=== PATIENT | male | born 1985 | race Caucasian/White ===

== ENCOUNTER 2020-11-20 18:10 | Inpatient (IN) | payer OTHER ==
[2020-11-21] MEDS ORDERED: NICOTINE POLACRILEX 2 MG GUM BC PRN (01:18)
[2020-11-21] MEDS ORDERED: MAGNESIUM HYDROX 2400MG/30ML ORAL SUSPENSION 30 ML CUP PO PRN (01:18)
[2020-11-21] MEDS ORDERED: ACETAMINOPHEN 325 MG TABLET (FP) PO PRN (01:18)
[2020-11-21] MEDS ORDERED: LOPERAMIDE HCL 2 MG CAPSULE PO PRN (01:18)
[2020-11-21] MEDS ORDERED: MAG HYDROX/AL HYDROX/SIMETH 30 ML UNIT-DOSE CUP PO PRN (01:18)
[2020-11-21] MEDS ORDERED: IBUPROFEN 400 MG TABLET (FP) PO PRN (01:18)
[2020-11-21] MEDS ORDERED: P-EPHED 60MG/TRIPROLIDI 2.5MG TABLET PO PRN (01:18)
[2020-11-21] MEDS ORDERED: MAGNESIUM CITRATE 300 ML BOTTLE PO PRN (01:18)
[2020-11-21] MEDS ORDERED: guaiFENesin 200 MG/10 ML 10 ML UNIT-DOSE CUPS PO PRN (01:18)
[2020-11-21] MEDS ORDERED: TUBERCULIN PPD 5 TU/0.1ML VIAL ID ONE (01:43)
[2020-11-21 02:44] VITALS: BMI 32.8
[2020-11-21] MEDS: PRENATAL VITAMINS W/ FOLIC ACID TABLET (FP) PO SCH (10:50)
[2020-11-21] MEDS: NICOTINE 14 MG/24 HOURS TOPICAL PATCH TD SCH (10:50)
[2020-11-21] MEDS ORDERED: ATENOLOL 50 MG TABLET (FP) PO SCH (11:00)
[2020-11-21] MEDS ORDERED: METHIMAZOLE 5 MG TABLET (FP) PO SCH (11:00)
[2020-11-21 11:29] LABS: CALCIUM 8.5 mg/dL (8.5-10.1); HEMOGLOBIN 14.6 GM/dL (11.7-16.9); MCH 30.9 pg (25.7-33.7); MCHC 33.9 g/dl (32.0-35.9); MEAN CELL VOLUME 91.2 fl (80-96); MEAN PLT VOLUME 10.1 fl (7.5-11.1); PLATELET COUNT 165 K/MM3 (134-434); RBC 4.72 M/mm3 (4.00-5.60); RDW 13.8 % (11.9-15.9); WHITE BLOOD COUNT 9.3 K/mm3 (4.0-10.0)
[2020-11-21 11:30] LABS: ALBUMIN 3.6 g/dl (3.4-5.0); BLOOD UREA NITROGEN 18.3 mg/dL (7-18)
[2020-11-21] MEDS ORDERED: METHIMAZOLE 5 MG TABLET (FP) PO ONE (11:30)
[2020-11-21 11:33] LABS: CREATININE 1.1 mg/dL (0.55-1.3)
[2020-11-21 11:34] LABS: BILIRUBIN,TOTAL 0.5 mg/dL (0.2-1); TOT PROT 7.2 g/dl (6.4-8.2)
[2020-11-21] MEDS: ATENOLOL 50 MG TABLET (FP) PO SCH (11:54)
[2020-11-21] MEDS: METHIMAZOLE 5 MG TABLET (FP) PO SCH (11:54)
[2020-11-21] MEDS ORDERED: FLU VACCINE (FLULAVAL) PF 60 MCG/0.5 ML SYRINGE 2020-2021 IM ONE (12:00)
[2020-11-21 12:24] LABS: HIV INTERPRETATION NEGATIVE (NEGATIVE)
[2020-11-21 17:58] LABS: PH,URINE 6.5 (5.0-8.0); URINE APPEARANCE CLEAR; URINE BILIRUBIN NEGATIVE (NEGATIVE); URINE COLOR YELLOW; URINE GLUCOSE (UA) NEGATIVE (NEGATIVE); URINE KETONE NEGATIVE (NEGATIVE); URINE LEUK ESTERASE NEGATIVE (NEGATIVE); URINE NITRITE NEGATIVE (NEGATIVE); URINE PROTEIN NEGATIVE (NEGATIVE); URINE UROBILINOGEN 0.2 mg/dL (0.2-1.0)
[2020-11-21] MEDS ORDERED: MELATONIN 5 MG TABLETS PO SCH (22:00)
[2020-11-21] MEDS ORDERED: THIAMINE HCL 100 MG TABLET (FP) PO SCH (22:00)
[2020-11-22] MEDS: ATENOLOL 50 MG TABLET (FP) PO SCH (05:55)
[2020-11-22] MEDS: METHIMAZOLE 5 MG TABLET (FP) PO SCH (05:56)
[2020-11-22] MEDS: NICOTINE 14 MG/24 HOURS TOPICAL PATCH TD SCH (10:49)
[2020-11-22] MEDS: PRENATAL VITAMINS W/ FOLIC ACID TABLET (FP) PO SCH (10:49)
[2020-11-22 20:30] VITALS: BP 147/90; PULSE 18; TEMP 96.9
== END 2020-11-22 20:40 | disposition short-term general hospital (02) | DRG 772 ==
LOC: YASAS 18:10 → Y5N 11-21 01:19
PROVIDERS: ADMIT Allergy & Immunology; ATTEND Allergy & Immunology
PROC: HZ42ZZZ Group Counseling for Substance Abuse Treatment, Cognitive-Behavioral (ICD-10-PCS; principal; 2020-11-21)
DX: F10.20 Alcohol dependence, uncomplicated (principal); F16.20 Hallucinogen dependence, uncomplicated; F12.20 Cannabis dependence, uncomplicated; F17.210 Nicotine dependence, cigarettes, uncomplicated; R45.851 Suicidal ideations; E05.00 Thyrotoxicosis with diffuse goiter without thyrotoxic crisis or storm; R44.0 Auditory hallucinations; Z56.0 Unemployment, unspecified; Z59.0 Homelessness
CPT/HCPCS: 36415; 80053; 81003; 85027; 86780; 87389; C9803; G0008; Q2036; U0003

== ENCOUNTER 2022-09-03 20:25 | Inpatient (IN) | payer OTHER ==
[2022-09-03 21:24] VITALS: BMI 28.9
[2022-09-04] MEDS ORDERED: LOPERAMIDE HCL 2 MG CAPSULE PO PRN
[2022-09-04] MEDS ORDERED: MAG HYDROX/AL HYDROX/SIMETH 30 ML UNIT-DOSE CUP PO PRN
[2022-09-04] MEDS ORDERED: BENZOCAINE/MENTHOL (CHLORASEPTIC ) LOZENGE MM PRN
[2022-09-04] MEDS ORDERED: DICYCLOMINE HCL 10 MG CAPSULE PO PRN
[2022-09-04] MEDS ORDERED: IBUPROFEN 600 MG TABLET (FP) PO PRN
[2022-09-04] MEDS ORDERED: MAGNESIUM HYDROX 2400MG/30ML ORAL SUSPENSION 30 ML CUP PO PRN
[2022-09-04] MEDS ORDERED: POLYETHYLENE GLYCOL (HEALTHYLAX) 3350 17 GM PACKET PO PRN
[2022-09-04] MEDS ORDERED: ONDANSETRON *ODT* 4 MG TABLET SL PRN
[2022-09-04] MEDS ORDERED: ACETAMINOPHEN 325 MG TABLET (FP) PO PRN ×2
[2022-09-04] MEDS ORDERED: BISMUTH SUBSALICYLATE 524 MG/30 ML PO PRN
[2022-09-04] MEDS ORDERED: NALOXONE HCL (KLOXXADO) 8 MG SPRAY NS PRN
[2022-09-04] MEDS: PRENATAL VITAMINS W/ FOLIC ACID TABLET (FP) PO SCH (10:11)
[2022-09-04] MEDS: METHIMAZOLE 10 MG TABLET PO SCH (15:25)
[2022-09-04] MEDS: ATENOLOL 50 MG TABLET (FP) PO SCH (15:25)
[2022-09-04] MEDS: IBUPROFEN 400 MG TABLET (FP) PO PRN (21:50)
[2022-09-04] MEDS: MELATONIN 5 MG TABLETS PO SCH (21:50)
[2022-09-04] MEDS: THIAMINE HCL 100 MG TABLET (FP) PO SCH (21:50)
[2022-09-04] MEDS: METHOCARBAMOL 500 MG TABLET PO PRN (21:50)
[2022-09-05] MEDS: ATENOLOL 50 MG TABLET (FP) PO SCH (10:11)
[2022-09-05] MEDS: METHIMAZOLE 10 MG TABLET PO SCH (10:12)
[2022-09-05] MEDS: PRENATAL VITAMINS W/ FOLIC ACID TABLET (FP) PO SCH (10:12)
[2022-09-05 12:27] LABS: HEMATOCRIT 44.4 % (35.4-49); HEMOGLOBIN 14.4 GM/dL (11.7-16.9); MCH 28.7 pg (25.7-33.7); MCHC 32.5 g/dl (32.0-35.9); MEAN CELL VOLUME 88.2 fl (80-96); MEAN PLT VOLUME 9.2 fl (7.5-11.1); PLATELET COUNT 244 10^3/uL (134-434); RBC 5.03 M/mm3 (4.00-5.60); RDW 13.3 % (11.9-15.9); WHITE BLOOD COUNT 5.8 K/mm3 (4.0-10.0)
[2022-09-05 12:29] LABS: CALCIUM 9.1 mg/dL (8.5-10.1)
[2022-09-05 12:30] LABS: ALBUMIN 3.6 g/dl (3.4-5.0); BLOOD UREA NITROGEN 18.8 mg/dL (7-18)
[2022-09-05 12:33] LABS: CREATININE 0.8 mg/dL (0.55-1.3)
[2022-09-05 12:34] LABS: TOT PROT 7.8 g/dl (6.4-8.2)
[2022-09-05 12:35] LABS: BILIRUBIN,TOTAL 0.5 mg/dL (0.2-1)
[2022-09-05] MEDS: THIAMINE HCL 100 MG TABLET (FP) PO SCH (22:45)
[2022-09-05] MEDS: MELATONIN 5 MG TABLETS PO SCH (22:45)
[2022-09-05] MEDS: METHOCARBAMOL 500 MG TABLET PO PRN (22:46)
[2022-09-05] MEDS: IBUPROFEN 400 MG TABLET (FP) PO PRN (22:46)
[2022-09-06 08:56] VITALS: RESP 18
[2022-09-06] MEDS: ATENOLOL 50 MG TABLET (FP) PO SCH (10:46)
[2022-09-06] MEDS: PRENATAL VITAMINS W/ FOLIC ACID TABLET (FP) PO SCH (10:46)
[2022-09-06] MEDS: METHIMAZOLE 10 MG TABLET PO SCH (10:46)
[2022-09-06 12:50] VITALS: BP 136/86; PULSE 64; TEMP 97.7
== END 2022-09-06 14:20 | disposition home or self-care (01) | DRG 775 ==
LOC: YASAS 20:25 → UNDOADMIN 09-04 01:26 → Y3N 09-04 01:26 → UNDODISIN 09-06 14:20
PROVIDERS: ADMIT Allergy & Immunology; ATTEND Surgery
PROC: HZ2ZZZZ Detoxification Services for Substance Abuse Treatment (ICD-10-PCS; principal; 2022-09-04)
DX: F10.230 Alcohol dependence with withdrawal, uncomplicated (principal); F16.20 Hallucinogen dependence, uncomplicated; F12.20 Cannabis dependence, uncomplicated; F13.21 Sedative, hypnotic or anxiolytic dependence, in remission; F17.210 Nicotine dependence, cigarettes, uncomplicated; I10 Essential (primary) hypertension; E05.00 Thyrotoxicosis with diffuse goiter without thyrotoxic crisis or storm; Z86.59 Personal history of other mental and behavioral disorders; Z56.0 Unemployment, unspecified; Z59.01 Sheltered homelessness
CPT/HCPCS: 36415; 80053; 85027; 86780; 87811; 93005; 93010; C9803-CS; U0003; U0005

== ENCOUNTER 2022-10-02 22:58 | Inpatient (IN) | payer OTHER ==
[2022-10-02 23:31] VITALS: BMI 24.5
[2022-10-02] MEDS ORDERED: METHOCARBAMOL 500 MG TABLET PO PRN (23:54)
[2022-10-02] MEDS ORDERED: ONDANSETRON *ODT* 4 MG TABLET SL PRN (23:54)
[2022-10-02] MEDS ORDERED: LOPERAMIDE HCL 2 MG CAPSULE PO PRN (23:54)
[2022-10-02] MEDS ORDERED: MAGNESIUM HYDROX 2400MG/30ML ORAL SUSPENSION 30 ML CUP PO PRN (23:54)
[2022-10-02] MEDS ORDERED: MAG HYDROX/AL HYDROX/SIMETH 30 ML UNIT-DOSE CUP PO PRN (23:54)
[2022-10-02] MEDS ORDERED: IBUPROFEN 600 MG TABLET (FP) PO PRN (23:54)
[2022-10-02] MEDS ORDERED: NALOXONE HCL (KLOXXADO) 8 MG SPRAY NS PRN (23:54)
[2022-10-02] MEDS ORDERED: BENZOCAINE/MENTHOL (CHLORASEPTIC ) LOZENGE MM PRN (23:54)
[2022-10-02] MEDS ORDERED: DICYCLOMINE HCL 10 MG CAPSULE PO PRN (23:54)
[2022-10-02] MEDS ORDERED: NICOTINE POLACRILEX 2 MG GUM BUC PRN (23:54)
[2022-10-02] MEDS ORDERED: BISMUTH SUBSALICYLATE 524 MG/30 ML PO PRN (23:54)
[2022-10-02] MEDS ORDERED: ACETAMINOPHEN 325 MG TABLET (FP) PO PRN ×2 (23:54)
[2022-10-02] MEDS ORDERED: IBUPROFEN 400 MG TABLET (FP) PO PRN (23:54)
[2022-10-02] MEDS ORDERED: POLYETHYLENE GLYCOL (HEALTHYLAX) 3350 17 GM PACKET PO PRN (23:54)
[2022-10-02] MEDS ORDERED: hydrOXYzine PAMOATE 25 MG CAPSULE (FP) PO PRN (23:54)
[2022-10-03] MEDS: PRENATAL VITAMINS W/ FOLIC ACID TABLET (FP) PO SCH (10:21)
[2022-10-03] MEDS: NICOTINE 14 MG/24 HOURS TOPICAL PATCH TD SCH (10:21)
[2022-10-03 11:26] LABS: HEMATOCRIT 39.9 % (35.4-49); MCH 28.5 pg (25.7-33.7); MCHC 32.6 g/dl (32.0-35.9); MEAN CELL VOLUME 87.3 fl (80-96); MEAN PLT VOLUME 9.3 fl (7.5-11.1); PLATELET COUNT 166 10^3/uL (134-434); RBC 4.57 M/mm3 (4.00-5.60); RDW 14.4 % (11.9-15.9); WHITE BLOOD COUNT 5.1 K/mm3 (4.0-10.0)
[2022-10-03 11:32] LABS: BLOOD UREA NITROGEN 18.7 mg/dL (7-18); CALCIUM 8.6 mg/dL (8.5-10.1)
[2022-10-03 11:33] LABS: ALBUMIN 3.3 g/dl (3.4-5.0)
[2022-10-03 11:35] LABS: CREATININE 0.7 mg/dL (0.55-1.3)
[2022-10-03 11:37] LABS: BILIRUBIN,TOTAL 0.7 mg/dL (0.2-1); TOT PROT 6.8 g/dl (6.4-8.2)
[2022-10-03] MEDS: THIAMINE HCL 100 MG TABLET (FP) PO SCH (22:50)
[2022-10-03] MEDS: MELATONIN 5 MG TABLETS PO SCH (22:50)
[2022-10-04] MEDS: PRENATAL VITAMINS W/ FOLIC ACID TABLET (FP) PO SCH (10:12)
[2022-10-04] MEDS: NICOTINE 14 MG/24 HOURS TOPICAL PATCH TD SCH (10:14)
[2022-10-04] MEDS: METHIMAZOLE 10 MG TABLET PO SCH (11:01)
[2022-10-04] MEDS: ATENOLOL 50 MG TABLET (FP) PO SCH (11:01)
[2022-10-04 18:01] VITALS: RESP 18
[2022-10-04] MEDS: MELATONIN 5 MG TABLETS PO SCH (22:30)
[2022-10-04] MEDS: THIAMINE HCL 100 MG TABLET (FP) PO SCH (22:30)
[2022-10-05 09:55] VITALS: BP 142/83; PULSE 96; TEMP 97.1
[2022-10-05] MEDS: PRENATAL VITAMINS W/ FOLIC ACID TABLET (FP) PO SCH (10:12)
[2022-10-05] MEDS: ATENOLOL 50 MG TABLET (FP) PO SCH (10:12)
[2022-10-05] MEDS: METHIMAZOLE 10 MG TABLET PO SCH (10:12)
[2022-10-05] MEDS: NICOTINE 14 MG/24 HOURS TOPICAL PATCH TD SCH (10:13)
== END 2022-10-05 12:45 | disposition other institution (70) | DRG 775 ==
LOC: YASAS 22:58 → Y3N 23:51
PROVIDERS: ADMIT Allergy & Immunology; ATTEND Surgery
PROC: HZ2ZZZZ Detoxification Services for Substance Abuse Treatment (ICD-10-PCS; principal; 2022-10-02)
DX: F10.230 Alcohol dependence with withdrawal, uncomplicated (principal); F16.20 Hallucinogen dependence, uncomplicated; F17.210 Nicotine dependence, cigarettes, uncomplicated; F20.9 Schizophrenia, unspecified; F31.9 Bipolar disorder, unspecified; F41.9 Anxiety disorder, unspecified; I10 Essential (primary) hypertension; Z56.0 Unemployment, unspecified; Z59.01 Sheltered homelessness
CPT/HCPCS: 36415; 80053; 85027; 86780; C9803-CS; U0003; U0005

== ENCOUNTER 2022-12-02 16:29 | Inpatient (IN) | payer OTHER ==
[2022-12-02 18:44] VITALS: BMI 25.0
[2022-12-02] MEDS ORDERED: NICOTINE 10 MG CARTRIDGE (INHALER) IH PRN (18:59)
[2022-12-02] MEDS ORDERED: MAGNESIUM HYDROX 2400MG/30ML ORAL SUSPENSION 30 ML CUP PO PRN (18:59)
[2022-12-02] MEDS ORDERED: NALOXONE HCL (KLOXXADO) 8 MG SPRAY NS PRN (18:59)
[2022-12-02] MEDS ORDERED: NALOXONE HCL 0.4 MG/ML VIAL IM PRN (18:59)
[2022-12-02] MEDS ORDERED: MAG HYDROX/AL HYDROX/SIMETH 30 ML UNIT-DOSE CUP PO PRN (18:59)
[2022-12-02] MEDS ORDERED: ACETAMINOPHEN 325 MG TABLET (FP) PO PRN (18:59)
[2022-12-02] MEDS ORDERED: BENZOCAINE/MENTHOL (CHLORASEPTIC ) LOZENGE MM PRN (18:59)
[2022-12-02] MEDS ORDERED: BENZONATATE 200 MG CAPSULE PO PRN (18:59)
[2022-12-02] MEDS ORDERED: IBUPROFEN 600 MG TABLET (FP) PO PRN (18:59)
[2022-12-02] MEDS ORDERED: IBUPROFEN 400 MG TABLET (FP) PO PRN (18:59)
[2022-12-02] MEDS ORDERED: guaiFENesin 600 MG TABLET.ER (FP) PO PRN (18:59)
[2022-12-02] MEDS ORDERED: POLYETHYLENE GLYCOL (HEALTHYLAX) 3350 17 GM PACKET PO PRN (18:59)
[2022-12-02] MEDS ORDERED: hydrOXYzine PAMOATE 25 MG CAPSULE (FP) PO PRN (18:59)
[2022-12-02] MEDS ORDERED: LOPERAMIDE HCL 2 MG CAPSULE PO PRN (18:59)
[2022-12-02] MEDS: MELATONIN 5 MG TABLETS PO SCH (23:02)
[2022-12-02] MEDS: THIAMINE HCL 100 MG TABLET (FP) PO SCH (23:02)
[2022-12-03] MEDS: risperiDONE 0.5 MG TABLET PO SCH ×2 (09:53→21:34)
[2022-12-03] MEDS: PRENATAL VITAMINS W/ FOLIC ACID TABLET (FP) PO SCH (09:53)
[2022-12-03 10:18] VITALS: RESP 18
[2022-12-03 10:48] LABS: HEMATOCRIT 40.7 % (35.4-49); HEMOGLOBIN 13.4 GM/dL (11.7-16.9); MCH 28.7 pg (25.7-33.7); MCHC 32.9 g/dl (32.0-35.9); MEAN CELL VOLUME 87.3 fl (80-96); MEAN PLT VOLUME 9.2 fl (7.5-11.1); PLATELET COUNT 211 10^3/uL (134-434); RBC 4.65 M/mm3 (4.00-5.60); RDW 14.7 % (11.9-15.9); WHITE BLOOD COUNT 3.8 K/mm3 (4.0-10.0)
[2022-12-03 11:06] LABS: CALCIUM 8.7 mg/dL (8.5-10.1)
[2022-12-03 11:07] LABS: BLOOD UREA NITROGEN 15.9 mg/dL (7-18)
[2022-12-03 11:09] LABS: CREATININE 0.7 mg/dL (0.55-1.3)
[2022-12-03 11:11] LABS: BILIRUBIN,TOTAL 0.6 mg/dL (0.2-1); TOT PROT 6.4 g/dl (6.4-8.2)
[2022-12-03] MEDS: METHIMAZOLE 10 MG TABLET PO SCH (17:05)
[2022-12-03] MEDS: MELATONIN 5 MG TABLETS PO SCH (21:33)
[2022-12-03] MEDS: THIAMINE HCL 100 MG TABLET (FP) PO SCH (21:34)
[2022-12-04] MEDS ORDERED: ATENOLOL 50 MG TABLET (FP) PO SCH (10:00)
[2022-12-04] MEDS: METHIMAZOLE 10 MG TABLET PO SCH (10:05)
[2022-12-04] MEDS: PRENATAL VITAMINS W/ FOLIC ACID TABLET (FP) PO SCH (10:06)
[2022-12-04] MEDS: risperiDONE 0.5 MG TABLET PO SCH (10:53)
[2022-12-04] MEDS ORDERED: PNEUMOC 20-VAL CONJ-DIP CRM/PF 0.5 ML SYRINGE IM ONE (12:00)
[2022-12-04 19:11] VITALS: BP 122/73; PULSE 88; TEMP 97.9
== END 2022-12-04 19:16 | disposition left against medical advice (07) | DRG 770 ==
LOC: YASAS 16:29 → Y3E 22:37
PROVIDERS: ADMIT Allergy & Immunology; ATTEND Allergy & Immunology
PROC: HZ42ZZZ Group Counseling for Substance Abuse Treatment, Cognitive-Behavioral (ICD-10-PCS; principal; 2022-12-02)
DX: F10.20 Alcohol dependence, uncomplicated (principal); F16.20 Hallucinogen dependence, uncomplicated; F17.210 Nicotine dependence, cigarettes, uncomplicated; F31.9 Bipolar disorder, unspecified; F20.9 Schizophrenia, unspecified; F39 Unspecified mood [affective] disorder; I10 Essential (primary) hypertension; E05.00 Thyrotoxicosis with diffuse goiter without thyrotoxic crisis or storm
CPT/HCPCS: 36415; 80053; 85027; 86780; 90677; C9803-CS; U0003; U0005

== ENCOUNTER 2023-04-20 21:47 | Inpatient (IN) | payer BC, OTHER ==
[2023-04-20 22:14] VITALS: BMI 27.4
[2023-04-20] MEDS ORDERED: POLYETHYLENE GLYCOL (HEALTHYLAX) 3350 17 GM PACKET PO PRN (23:15)
[2023-04-20] MEDS ORDERED: MAGNESIUM HYDROX 2400MG/30ML ORAL SUSPENSION 30 ML CUP PO PRN (23:15)
[2023-04-20] MEDS ORDERED: guaiFENesin 600 MG TABLET.ER (FP) PO PRN (23:15)
[2023-04-20] MEDS ORDERED: IBUPROFEN 600 MG TABLET (FP) PO PRN (23:15)
[2023-04-20] MEDS ORDERED: IBUPROFEN 400 MG TABLET (FP) PO PRN (23:15)
[2023-04-20] MEDS ORDERED: BENZONATATE 200 MG CAPSULE PO PRN (23:15)
[2023-04-20] MEDS ORDERED: MAG HYDROX/AL HYDROX/SIMETH 30 ML UNIT-DOSE CUP PO PRN (23:15)
[2023-04-20] MEDS ORDERED: hydrOXYzine PAMOATE 25 MG CAPSULE (FP) PO PRN (23:15)
[2023-04-20] MEDS ORDERED: AMMONIUM LACTATE 12% LOTION 225 GM BOTTLE TP PRN (23:15)
[2023-04-20] MEDS ORDERED: COLLOIDAL OATMEAL 1 BAR EACH TP PRN (23:15)
[2023-04-20] MEDS ORDERED: NICOTINE POLACRILEX 2 MG GUM BUC PRN (23:15)
[2023-04-20] MEDS ORDERED: ACETAMINOPHEN 325 MG TABLET (FP) PO PRN (23:15)
[2023-04-20] MEDS ORDERED: BENZOCAINE/MENTHOL (CHLORASEPTIC ) LOZENGE MM PRN (23:15)
[2023-04-20] MEDS ORDERED: LOPERAMIDE HCL 2 MG CAPSULE PO PRN (23:15)
[2023-04-20] MEDS ORDERED: P-EPHED 60MG/TRIPROLIDI 2.5MG TABLET PO PRN (23:15)
[2023-04-21] MEDS: MELATONIN 5 MG TABLETS PO SCH ×2 (02:28→21:28)
[2023-04-21] MEDS: ATENOLOL 50 MG TABLET (FP) PO SCH (10:03)
[2023-04-21] MEDS: risperiDONE 0.5 MG TABLET PO SCH ×2 (10:03→21:28)
[2023-04-21] MEDS: METHIMAZOLE 10 MG TABLET PO SCH (10:03)
[2023-04-21] MEDS: PRENATAL VITAMINS W/ FOLIC ACID TABLET (FP) PO SCH (10:03)
[2023-04-21 11:30] LABS: HEMOGLOBIN 14.3 GM/dL (11.7-16.9); MCH 28.2 pg (25.7-33.7); MCHC 32.5 g/dl (32.0-35.9); MEAN CELL VOLUME 86.9 fl (80-96); MEAN PLT VOLUME 9.7 fl (7.5-11.1); PLATELET COUNT 166 10^3/uL (134-434); RBC 5.07 M/mm3 (4.00-5.60); RDW 13.6 % (11.9-15.9); WHITE BLOOD COUNT 6.3 K/mm3 (4.0-10.0)
[2023-04-21 11:31] LABS: POTASSIUM 4.4 mmol/L (3.5-5.1)
[2023-04-21 11:36] LABS: BLOOD UREA NITROGEN 18.4 mg/dL (7-18); CALCIUM 8.7 mg/dL (8.5-10.1)
[2023-04-21 11:37] LABS: ALBUMIN 3.4 g/dl (3.4-5.0)
[2023-04-21 11:39] LABS: CREATININE 0.9 mg/dL (0.55-1.3)
[2023-04-21 11:41] LABS: BILIRUBIN,TOTAL 0.7 mg/dL (0.2-1); TOT PROT 6.9 g/dl (6.4-8.2)
[2023-04-21 16:55] LABS: URINE APPEARANCE CLEAR; URINE BILIRUBIN NEGATIVE (NEGATIVE); URINE COLOR YELLOW; URINE GLUCOSE (UA) NEGATIVE (NEGATIVE); URINE KETONE TRACE (NEGATIVE); URINE LEUK ESTERASE NEGATIVE (NEGATIVE); URINE NITRITE NEGATIVE (NEGATIVE); URINE PROTEIN NEGATIVE (NEGATIVE)
[2023-04-21] MEDS: THIAMINE HCL 100 MG TABLET (FP) PO SCH (21:28)
[2023-04-22] MEDS: METHIMAZOLE 10 MG TABLET PO SCH (09:29)
[2023-04-22] MEDS: ATENOLOL 50 MG TABLET (FP) PO SCH (09:29)
[2023-04-22] MEDS: risperiDONE 0.5 MG TABLET PO SCH ×2 (09:29→21:24)
[2023-04-22] MEDS: PRENATAL VITAMINS W/ FOLIC ACID TABLET (FP) PO SCH (09:29)
[2023-04-22] MEDS ORDERED: PNEUMOC 20-VAL CONJ-DIP CRM/PF 0.5 ML SYRINGE IM ONE (12:00)
[2023-04-22] MEDS: THIAMINE HCL 100 MG TABLET (FP) PO SCH (21:24)
[2023-04-22] MEDS: MELATONIN 5 MG TABLETS PO SCH (21:24)
[2023-04-23] MEDS: METHIMAZOLE 10 MG TABLET PO SCH (10:00)
[2023-04-23] MEDS: PRENATAL VITAMINS W/ FOLIC ACID TABLET (FP) PO SCH (10:00)
[2023-04-23] MEDS: risperiDONE 0.5 MG TABLET PO SCH ×2 (10:01→21:54)
[2023-04-23] MEDS: ATENOLOL 50 MG TABLET (FP) PO SCH (10:01)
[2023-04-23 11:51] VITALS: RESP 18
[2023-04-23] MEDS: MELATONIN 5 MG TABLETS PO SCH (21:54)
[2023-04-23] MEDS: THIAMINE HCL 100 MG TABLET (FP) PO SCH (21:54)
[2023-04-24] MEDS: risperiDONE 0.5 MG TABLET PO SCH ×2 (10:08→21:18)
[2023-04-24] MEDS: METHIMAZOLE 10 MG TABLET PO SCH (10:08)
[2023-04-24] MEDS: ATENOLOL 50 MG TABLET (FP) PO SCH (10:08)
[2023-04-24] MEDS: PRENATAL VITAMINS W/ FOLIC ACID TABLET (FP) PO SCH (10:08)
[2023-04-24] MEDS: MELATONIN 5 MG TABLETS PO SCH (21:18)
[2023-04-24] MEDS: THIAMINE HCL 100 MG TABLET (FP) PO SCH (21:18)
[2023-04-25 07:14] VITALS: BP 129/72; PULSE 79; TEMP 97.2
[2023-04-25] MEDS: PRENATAL VITAMINS W/ FOLIC ACID TABLET (FP) PO SCH (10:21)
[2023-04-25] MEDS: METHIMAZOLE 10 MG TABLET PO SCH (10:22)
[2023-04-25] MEDS: risperiDONE 0.5 MG TABLET PO SCH (10:22)
[2023-04-25] MEDS: ATENOLOL 50 MG TABLET (FP) PO SCH (10:22)
== END 2023-04-25 15:45 | disposition home or self-care (01) | DRG 772 ==
LOC: YASAS 21:47 → Y5N 23:19
PROVIDERS: ADMIT Allergy & Immunology; ATTEND Psychiatry & Neurology Pain Medicine
PROC: HZ42ZZZ Group Counseling for Substance Abuse Treatment, Cognitive-Behavioral (ICD-10-PCS; principal; 2023-04-20)
DX: F10.20 Alcohol dependence, uncomplicated (principal); F16.20 Hallucinogen dependence, uncomplicated; F12.20 Cannabis dependence, uncomplicated; F17.210 Nicotine dependence, cigarettes, uncomplicated; F39 Unspecified mood [affective] disorder; I10 Essential (primary) hypertension; E05.00 Thyrotoxicosis with diffuse goiter without thyrotoxic crisis or storm; R00.0 Tachycardia, unspecified; Z86.59 Personal history of other mental and behavioral disorders; Z56.0 Unemployment, unspecified; Z59.00 Homelessness unspecified
CPT/HCPCS: 36415; 80053; 81003; 85027; 86780; 87635

== ENCOUNTER 2023-06-23 17:03 | Inpatient (IN) | payer BC ==
[2023-06-23 18:09] VITALS: BMI 29.5
[2023-06-23] MEDS ORDERED: LOPERAMIDE HCL 2 MG CAPSULE PO PRN (20:42)
[2023-06-23] MEDS ORDERED: ACETAMINOPHEN 325 MG TABLET (FP) PO PRN (20:42)
[2023-06-23] MEDS ORDERED: BENZOCAINE/MENTHOL (CHLORASEPTIC ) LOZENGE MM PRN (20:42)
[2023-06-23] MEDS ORDERED: MAGNESIUM HYDROX 2400MG/30ML ORAL SUSPENSION 30 ML CUP PO PRN (20:42)
[2023-06-23] MEDS ORDERED: IBUPROFEN 400 MG TABLET (FP) PO PRN (20:42)
[2023-06-23] MEDS ORDERED: IBUPROFEN 600 MG TABLET (FP) PO PRN (20:42)
[2023-06-23] MEDS ORDERED: COLLOIDAL OATMEAL 1 BAR EACH TP PRN (20:42)
[2023-06-23] MEDS ORDERED: guaiFENesin 600 MG TABLET.ER (FP) PO PRN (20:42)
[2023-06-23] MEDS ORDERED: MAG HYDROX/AL HYDROX/SIMETH 30 ML UNIT-DOSE CUP PO PRN (20:42)
[2023-06-23] MEDS ORDERED: P-EPHED 60MG/TRIPROLIDI 2.5MG TABLET PO PRN (20:42)
[2023-06-23] MEDS ORDERED: hydrOXYzine PAMOATE 25 MG CAPSULE (FP) PO PRN (20:42)
[2023-06-23] MEDS ORDERED: BENZONATATE 200 MG CAPSULE PO PRN (20:42)
[2023-06-23] MEDS ORDERED: POLYETHYLENE GLYCOL (HEALTHYLAX) 3350 17 GM PACKET PO PRN (20:42)
[2023-06-23] MEDS: MELATONIN 5 MG TABLETS PO SCH (21:34)
[2023-06-23] MEDS: THIAMINE HCL 100 MG TABLET (FP) PO SCH (21:35)
[2023-06-24] MEDS: PRENATAL VITAMINS W/ FOLIC ACID TABLET (FP) PO SCH (10:04)
[2023-06-24] MEDS: risperiDONE 0.5 MG TABLET PO SCH ×2 (10:26→21:31)
[2023-06-24 11:02] LABS: POTASSIUM 4.5 mmol/L (3.5-5.1)
[2023-06-24 11:10] LABS: ALBUMIN 3.6 g/dl (3.4-5.0); BLOOD UREA NITROGEN 17.8 mg/dL (7-18)
[2023-06-24 11:13] LABS: CREATININE 0.8 mg/dL (0.55-1.3)
[2023-06-24 11:15] LABS: TOT PROT 7.6 g/dl (6.4-8.2)
[2023-06-24 11:17] LABS: BILIRUBIN,TOTAL 0.8 mg/dL (0.2-1)
[2023-06-24 11:39] LABS: HEMATOCRIT 43.9 % (35.4-49); HEMOGLOBIN 15.1 GM/dL (11.7-16.9); MCH 28.9 pg (25.7-33.7); MCHC 34.3 g/dl (32.0-35.9); MEAN CELL VOLUME 84.2 fl (80-96); MEAN PLT VOLUME 9.1 fl (7.5-11.1); PLATELET COUNT 214 10^3/uL (134-434); RBC 5.22 M/mm3 (4.00-5.60); RDW 13.9 % (11.9-15.9); WHITE BLOOD COUNT 6.8 K/mm3 (4.0-10.0)
[2023-06-24 11:47] LABS: PH,URINE 5.5 (5.0-8.0); URINE APPEARANCE CLEAR; URINE BILIRUBIN NEGATIVE (NEGATIVE); URINE COLOR DK YELLOW; URINE GLUCOSE (UA) NEGATIVE (NEGATIVE); URINE KETONE TRACE (NEGATIVE); URINE LEUK ESTERASE NEGATIVE (NEGATIVE); URINE NITRITE NEGATIVE (NEGATIVE); URINE PROTEIN NEGATIVE (NEGATIVE); URINE UROBILINOGEN 0.2 mg/dL (0.2-1.0)
[2023-06-24] MEDS: THIAMINE HCL 100 MG TABLET (FP) PO SCH (21:31)
[2023-06-24] MEDS: MELATONIN 5 MG TABLETS PO SCH (21:31)
[2023-06-24] MEDS: ATENOLOL 50 MG TABLET (FP) PO SCH (22:17)
[2023-06-24] MEDS: METHIMAZOLE 10 MG TABLET PO SCH (22:17)
[2023-06-25] MEDS: METHIMAZOLE 10 MG TABLET PO SCH (10:42)
[2023-06-25] MEDS: PRENATAL VITAMINS W/ FOLIC ACID TABLET (FP) PO SCH (10:42)
[2023-06-25] MEDS: risperiDONE 0.5 MG TABLET PO SCH ×2 (10:42→21:41)
[2023-06-25] MEDS: ATENOLOL 50 MG TABLET (FP) PO SCH (10:42)
[2023-06-25] MEDS: MELATONIN 5 MG TABLETS PO SCH (21:41)
[2023-06-25] MEDS: THIAMINE HCL 100 MG TABLET (FP) PO SCH (21:41)
[2023-06-26] MEDS: risperiDONE 0.5 MG TABLET PO SCH ×2 (10:06→21:38)
[2023-06-26] MEDS: PRENATAL VITAMINS W/ FOLIC ACID TABLET (FP) PO SCH (10:06)
[2023-06-26] MEDS: ATENOLOL 50 MG TABLET (FP) PO SCH (12:05)
[2023-06-26] MEDS: METHIMAZOLE 10 MG TABLET PO SCH (12:05)
[2023-06-26] MEDS: THIAMINE HCL 100 MG TABLET (FP) PO SCH (21:38)
[2023-06-26] MEDS: MELATONIN 5 MG TABLETS PO SCH (21:39)
[2023-06-27] MEDS: PRENATAL VITAMINS W/ FOLIC ACID TABLET (FP) PO SCH (10:09)
[2023-06-27] MEDS: ATENOLOL 50 MG TABLET (FP) PO SCH (10:09)
[2023-06-27] MEDS: METHIMAZOLE 10 MG TABLET PO SCH (10:09)
[2023-06-27] MEDS: risperiDONE 0.5 MG TABLET PO SCH ×2 (10:10→21:43)
[2023-06-27] MEDS ORDERED: PNEUMOC 20-VAL CONJ-DIP CRM/PF 0.5 ML SYRINGE IM ONE (12:00)
[2023-06-27] MEDS ORDERED: FLU VACCINE (FLULAVAL) PF 60 MCG/0.5 ML SYRINGE 2023-2024 IM ONE (12:00)
[2023-06-27] MEDS: THIAMINE HCL 100 MG TABLET (FP) PO SCH (21:43)
[2023-06-27] MEDS: MELATONIN 5 MG TABLETS PO SCH (21:43)
[2023-06-28] MEDS: PRENATAL VITAMINS W/ FOLIC ACID TABLET (FP) PO SCH (10:02)
[2023-06-28] MEDS: ATENOLOL 50 MG TABLET (FP) PO SCH (10:03)
[2023-06-28] MEDS: risperiDONE 0.5 MG TABLET PO SCH ×2 (10:03→21:26)
[2023-06-28] MEDS: METHIMAZOLE 10 MG TABLET PO SCH (10:03)
[2023-06-28] MEDS: THIAMINE HCL 100 MG TABLET (FP) PO SCH (21:26)
[2023-06-28] MEDS: MELATONIN 5 MG TABLETS PO SCH (21:29)
[2023-06-29] MEDS: PRENATAL VITAMINS W/ FOLIC ACID TABLET (FP) PO SCH (10:12)
[2023-06-29] MEDS: risperiDONE 0.5 MG TABLET PO SCH ×2 (10:13→21:25)
[2023-06-29] MEDS: ATENOLOL 50 MG TABLET (FP) PO SCH (10:13)
[2023-06-29] MEDS: METHIMAZOLE 10 MG TABLET PO SCH (10:13)
[2023-06-29] MEDS: THIAMINE HCL 100 MG TABLET (FP) PO SCH (21:25)
[2023-06-29] MEDS: MELATONIN 5 MG TABLETS PO SCH (21:25)
[2023-06-30] MEDS: PRENATAL VITAMINS W/ FOLIC ACID TABLET (FP) PO SCH (10:21)
[2023-06-30] MEDS: risperiDONE 0.5 MG TABLET PO SCH ×2 (10:21→21:27)
[2023-06-30] MEDS: ATENOLOL 50 MG TABLET (FP) PO SCH (10:22)
[2023-06-30] MEDS: METHIMAZOLE 10 MG TABLET PO SCH (10:22)
[2023-06-30] MEDS: MELATONIN 5 MG TABLETS PO SCH (21:27)
[2023-06-30] MEDS: THIAMINE HCL 100 MG TABLET (FP) PO SCH (21:27)
[2023-07-01] MEDS: PRENATAL VITAMINS W/ FOLIC ACID TABLET (FP) PO SCH (10:12)
[2023-07-01] MEDS: METHIMAZOLE 10 MG TABLET PO SCH (10:13)
[2023-07-01] MEDS: ATENOLOL 50 MG TABLET (FP) PO SCH (10:13)
[2023-07-01] MEDS: risperiDONE 0.5 MG TABLET PO SCH ×2 (10:13→21:32)
[2023-07-01] MEDS: MELATONIN 5 MG TABLETS PO SCH (21:32)
[2023-07-01] MEDS: THIAMINE HCL 100 MG TABLET (FP) PO SCH (21:33)
[2023-07-02] MEDS: PRENATAL VITAMINS W/ FOLIC ACID TABLET (FP) PO SCH (10:18)
[2023-07-02] MEDS: risperiDONE 0.5 MG TABLET PO SCH ×2 (10:19→21:54)
[2023-07-02] MEDS: ATENOLOL 50 MG TABLET (FP) PO SCH (10:19)
[2023-07-02] MEDS: METHIMAZOLE 10 MG TABLET PO SCH (10:19)
[2023-07-02] MEDS: THIAMINE HCL 100 MG TABLET (FP) PO SCH (21:54)
[2023-07-02] MEDS: MELATONIN 5 MG TABLETS PO SCH (21:54)
[2023-07-03] MEDS: PRENATAL VITAMINS W/ FOLIC ACID TABLET (FP) PO SCH (10:06)
[2023-07-03] MEDS: ATENOLOL 50 MG TABLET (FP) PO SCH (10:07)
[2023-07-03] MEDS: risperiDONE 0.5 MG TABLET PO SCH ×2 (10:07→21:48)
[2023-07-03] MEDS: METHIMAZOLE 10 MG TABLET PO SCH (10:07)
[2023-07-03] MEDS: MELATONIN 5 MG TABLETS PO SCH (21:48)
[2023-07-03] MEDS: THIAMINE HCL 100 MG TABLET (FP) PO SCH (21:49)
[2023-07-04] MEDS: risperiDONE 0.5 MG TABLET PO SCH ×2 (10:17→21:44)
[2023-07-04] MEDS: ATENOLOL 50 MG TABLET (FP) PO SCH (10:17)
[2023-07-04] MEDS: METHIMAZOLE 10 MG TABLET PO SCH (10:17)
[2023-07-04] MEDS: PRENATAL VITAMINS W/ FOLIC ACID TABLET (FP) PO SCH (10:17)
[2023-07-04] MEDS: MELATONIN 5 MG TABLETS PO SCH (21:43)
[2023-07-04] MEDS: THIAMINE HCL 100 MG TABLET (FP) PO SCH (21:43)
[2023-07-05 06:31] VITALS: BP 121/72; RESP 18; TEMP 97.8
[2023-07-05] MEDS: PRENATAL VITAMINS W/ FOLIC ACID TABLET (FP) PO SCH (10:19)
[2023-07-05] MEDS: risperiDONE 0.5 MG TABLET PO SCH (10:20)
[2023-07-05] MEDS: ATENOLOL 50 MG TABLET (FP) PO SCH (10:20)
[2023-07-05] MEDS: METHIMAZOLE 10 MG TABLET PO SCH (10:21)
[2023-07-05 11:36] VITALS: PULSE 106
== END 2023-07-05 13:55 | disposition home or self-care (01) | DRG 770 ==
LOC: YASAS 17:03 → Y5N 20:28
PROVIDERS: ADMIT Allergy & Immunology; ATTEND Psychiatry & Neurology Pain Medicine
PROC: HZ42ZZZ Group Counseling for Substance Abuse Treatment, Cognitive-Behavioral (ICD-10-PCS; principal; 2023-06-23)
DX: F10.20 Alcohol dependence, uncomplicated (principal); F16.20 Hallucinogen dependence, uncomplicated; F17.210 Nicotine dependence, cigarettes, uncomplicated; E05.90 Thyrotoxicosis, unspecified without thyrotoxic crisis or storm; I10 Essential (primary) hypertension; Z86.59 Personal history of other mental and behavioral disorders
CPT/HCPCS: 36415; 80053; 81003; 85027; 86780; 87635; 87811; 90686; G0008

== ENCOUNTER 2023-09-14 13:21 | Inpatient (IN) | payer BC ==
[2023-09-14 14:20] VITALS: BMI 28.0
[2023-09-14] MEDS ORDERED: LOPERAMIDE HCL 2 MG CAPSULE PO PRN (21:10)
[2023-09-14] MEDS ORDERED: IBUPROFEN 600 MG TABLET (FP) PO PRN (21:10)
[2023-09-14] MEDS ORDERED: IBUPROFEN 400 MG TABLET (FP) PO PRN (21:10)
[2023-09-14] MEDS ORDERED: P-EPHED 60MG/TRIPROLIDI 2.5MG TABLET PO PRN (21:10)
[2023-09-14] MEDS ORDERED: POLYETHYLENE GLYCOL (HEALTHYLAX) 3350 17 GM PACKET PO PRN (21:10)
[2023-09-14] MEDS ORDERED: BENZOCAINE/MENTHOL (CHLORASEPTIC ) LOZENGE MM PRN (21:10)
[2023-09-14] MEDS ORDERED: hydrOXYzine PAMOATE 25 MG CAPSULE (FP) PO PRN (21:10)
[2023-09-14] MEDS ORDERED: MAGNESIUM HYDROX 2400MG/30ML ORAL SUSPENSION 30 ML CUP PO PRN (21:10)
[2023-09-14] MEDS ORDERED: BENZONATATE 200 MG CAPSULE PO PRN (21:10)
[2023-09-14] MEDS ORDERED: MAG HYDROX/AL HYDROX/SIMETH 30 ML UNIT-DOSE CUP PO PRN (21:10)
[2023-09-14] MEDS ORDERED: guaiFENesin 600 MG TABLET.ER (FP) PO PRN (21:10)
[2023-09-14] MEDS ORDERED: ACETAMINOPHEN 325 MG TABLET (FP) PO PRN (21:10)
[2023-09-14] MEDS ORDERED: COLLOIDAL OATMEAL 1 BAR EACH TP PRN (21:10)
[2023-09-14] MEDS ORDERED: TUBERCULIN PPD 5 TU/0.1ML VIAL ID ONE (22:24)
[2023-09-14] MEDS: THIAMINE HCL 100 MG TABLET (FP) PO SCH (22:32)
[2023-09-14] MEDS: MELATONIN 5 MG TABLETS PO SCH (22:32)
[2023-09-15] MEDS: PRENATAL VITAMINS W/ FOLIC ACID TABLET (FP) PO SCH (09:57)
[2023-09-15] MEDS: risperiDONE 0.5 MG TABLET PO SCH ×2 (10:32→21:53)
[2023-09-15] MEDS ORDERED: METHIMAZOLE 10 MG TABLET PO SCH (12:30)
[2023-09-15] MEDS: ATENOLOL 50 MG TABLET (FP) PO SCH (13:15)
[2023-09-15 15:01] LABS: HEMATOCRIT 39.7 % (35.4-49); HEMOGLOBIN 13.1 GM/dL (11.7-16.9); MCH 27.7 pg (25.7-33.7); MEAN CELL VOLUME 84.2 fl (80-96); MEAN PLT VOLUME 9.3 fl (7.5-11.1); PLATELET COUNT 141 10^3/uL (134-434); RBC 4.72 M/mm3 (4.00-5.60); RDW 13.6 % (11.9-15.9); WHITE BLOOD COUNT 3.4 K/mm3 (4.0-10.0)
[2023-09-15 15:24] LABS: POTASSIUM 4.3 mmol/L (3.5-5.1)
[2023-09-15 15:33] LABS: ALBUMIN 3.1 g/dl (3.4-5.0); CALCIUM 8.8 mg/dL (8.5-10.1)
[2023-09-15 15:34] LABS: BLOOD UREA NITROGEN 12.6 mg/dL (7-18)
[2023-09-15 15:37] LABS: CREATININE 0.6 mg/dL (0.55-1.3)
[2023-09-15 15:39] LABS: BILIRUBIN,TOTAL 0.5 mg/dL (0.2-1); TOT PROT 6.6 g/dl (6.4-8.2)
[2023-09-15 18:43] LABS: PH,URINE 7.5 (5.0-8.0); URINE APPEARANCE CLEAR; URINE BILIRUBIN NEGATIVE (NEGATIVE); URINE COLOR YELLOW; URINE GLUCOSE (UA) NEGATIVE (NEGATIVE); URINE KETONE NEGATIVE (NEGATIVE); URINE LEUK ESTERASE NEGATIVE (NEGATIVE); URINE NITRITE NEGATIVE (NEGATIVE); URINE PROTEIN NEGATIVE (NEGATIVE); URINE UROBILINOGEN 0.2 mg/dL (0.2-1.0)
[2023-09-15] MEDS: THIAMINE HCL 100 MG TABLET (FP) PO SCH (21:52)
[2023-09-15] MEDS: MELATONIN 5 MG TABLETS PO SCH (21:52)
[2023-09-16] MEDS: METHIMAZOLE 10 MG TABLET PO SCH (09:56)
[2023-09-16] MEDS: risperiDONE 0.5 MG TABLET PO SCH ×2 (09:57→21:16)
[2023-09-16] MEDS: ATENOLOL 50 MG TABLET (FP) PO SCH (09:57)
[2023-09-16] MEDS: PRENATAL VITAMINS W/ FOLIC ACID TABLET (FP) PO SCH (09:57)
[2023-09-16] MEDS: MELATONIN 5 MG TABLETS PO SCH (21:16)
[2023-09-16] MEDS: THIAMINE HCL 100 MG TABLET (FP) PO SCH (21:17)
[2023-09-17 06:27] VITALS: RESP 20; TEMP 97.1
[2023-09-17 09:36] VITALS: BP 118/78; PULSE 86
[2023-09-17] MEDS: METHIMAZOLE 10 MG TABLET PO SCH (09:36)
[2023-09-17] MEDS: ATENOLOL 50 MG TABLET (FP) PO SCH (09:36)
[2023-09-17] MEDS: risperiDONE 0.5 MG TABLET PO SCH (09:36)
[2023-09-17] MEDS: PRENATAL VITAMINS W/ FOLIC ACID TABLET (FP) PO SCH (09:36)
== END 2023-09-17 14:05 | disposition home or self-care (01) | DRG 772 ==
LOC: YASAS 13:21 → Y3E 21:15
PROVIDERS: ADMIT Allergy & Immunology; ATTEND Psychiatry & Neurology Pain Medicine
PROC: HZ42ZZZ Group Counseling for Substance Abuse Treatment, Cognitive-Behavioral (ICD-10-PCS; principal; 2023-09-14)
DX: F10.20 Alcohol dependence, uncomplicated (principal); F16.20 Hallucinogen dependence, uncomplicated; F12.20 Cannabis dependence, uncomplicated; F17.210 Nicotine dependence, cigarettes, uncomplicated; F25.9 Schizoaffective disorder, unspecified; I10 Essential (primary) hypertension; E05.00 Thyrotoxicosis with diffuse goiter without thyrotoxic crisis or storm; Z59.00 Homelessness unspecified; Z56.0 Unemployment, unspecified
CPT/HCPCS: 36415; 80053; 81003; 85027; 86780; 87635

== ENCOUNTER 2023-12-21 18:32 | Inpatient (IN) | payer BC ==
[2023-12-21 19:20] VITALS: BMI 27.7
[2023-12-21] MEDS ORDERED: BENZOCAINE/MENTHOL (CHLORASEPTIC ) LOZENGE MM PRN (19:37)
[2023-12-21] MEDS ORDERED: guaiFENesin 600 MG TABLET.ER (FP) PO PRN (19:37)
[2023-12-21] MEDS ORDERED: MAGNESIUM HYDROX 2400MG/30ML ORAL SUSPENSION 30 ML CUP PO PRN (19:37)
[2023-12-21] MEDS ORDERED: LOPERAMIDE HCL 2 MG CAPSULE PO PRN (19:37)
[2023-12-21] MEDS ORDERED: IBUPROFEN 400 MG TABLET (FP) PO PRN (19:37)
[2023-12-21] MEDS ORDERED: POLYETHYLENE GLYCOL (HEALTHYLAX) 3350 17 GM PACKET PO PRN (19:37)
[2023-12-21] MEDS ORDERED: BENZONATATE 200 MG CAPSULE PO PRN (19:37)
[2023-12-21] MEDS ORDERED: ACETAMINOPHEN 325 MG TABLET (FP) PO PRN (19:37)
[2023-12-21] MEDS ORDERED: hydrOXYzine PAMOATE 25 MG CAPSULE (FP) PO PRN (19:37)
[2023-12-21] MEDS ORDERED: MAG HYDROX/AL HYDROX/SIMETH 30 ML UNIT-DOSE CUP PO PRN (19:37)
[2023-12-21 21:13] VITALS: RESP 18
[2023-12-21] MEDS: THIAMINE HCL 100 MG TABLET (FP) PO SCH (21:41)
[2023-12-21] MEDS: risperiDONE 1 MG TABLET PO ONE (21:41)
[2023-12-21] MEDS: MELATONIN 5 MG TABLETS PO SCH (21:41)
[2023-12-22 06:43] VITALS: TEMP 97.4
[2023-12-22] MEDS: IBUPROFEN 600 MG TABLET (FP) PO PRN (10:02)
[2023-12-22] MEDS: PRENATAL VITAMINS W/ FOLIC ACID TABLET (FP) PO SCH (10:03)
[2023-12-22] MEDS: ATENOLOL 50 MG TABLET (FP) PO SCH (11:02)
[2023-12-22] MEDS: METHIMAZOLE 10 MG TABLET PO SCH (11:02)
[2023-12-22 11:28] VITALS: BP 120/64; PULSE 93
[2023-12-22 11:46] LABS: PH,URINE 5.5 (5.0-8.0); URINE APPEARANCE CLEAR; URINE BILIRUBIN NEGATIVE (NEGATIVE); URINE COLOR YELLOW; URINE GLUCOSE (UA) NEGATIVE (NEGATIVE); URINE KETONE NEGATIVE (NEGATIVE); URINE LEUK ESTERASE NEGATIVE (NEGATIVE); URINE NITRITE NEGATIVE (NEGATIVE); URINE PROTEIN NEGATIVE (NEGATIVE); URINE UROBILINOGEN 0.2 mg/dL (0.2-1.0)
[2023-12-22 11:46] LABS: HEMATOCRIT 46.1 % (35.4-49); HEMOGLOBIN 14.9 GM/dL (11.7-16.9); MCH 28.4 pg (25.7-33.7); MCHC 32.2 g/dl (32.0-35.9); MEAN CELL VOLUME 88.1 fl (80-96); MEAN PLT VOLUME 9.2 fl (7.5-11.1); PLATELET COUNT 209 10^3/uL (134-434); POTASSIUM 4.2 mmol/L (3.5-5.1); RBC 5.24 M/mm3 (4.00-5.60)
[2023-12-22 11:52] LABS: ALBUMIN 3.4 g/dl (3.4-5.0); CALCIUM 8.7 mg/dL (8.5-10.1)
[2023-12-22 11:55] LABS: CREATININE 0.8 mg/dL (0.55-1.3)
[2023-12-22 11:56] LABS: BILIRUBIN,TOTAL 0.5 mg/dL (0.2-1); TOT PROT 7.1 g/dl (6.4-8.2)
[2023-12-22] MEDS: risperiDONE 0.5 MG TABLET PO SCH (14:18)
[2023-12-22] MEDS ORDERED: DIVALPROEX SODIUM 500 MG TABLET E.C. PO SCH (22:00)
[2023-12-22] MEDS: risperiDONE 1 MG TABLET PO SCH (22:03)
[2023-12-22] MEDS: DIVALPROEX SODIUM 500 MG TABLET E.C. PO SCH (22:03)
== END 2023-12-22 21:57 | disposition left against medical advice (07) | DRG 770 ==
LOC: YASAS 18:32 → Y5N 20:20
PROVIDERS: ADMIT Allergy & Immunology; ATTEND Psychiatry & Neurology Pain Medicine
PROC: HZ42ZZZ Group Counseling for Substance Abuse Treatment, Cognitive-Behavioral (ICD-10-PCS; principal; 2023-12-21)
DX: F10.20 Alcohol dependence, uncomplicated (principal); F14.20 Cocaine dependence, uncomplicated; F16.20 Hallucinogen dependence, uncomplicated; F17.210 Nicotine dependence, cigarettes, uncomplicated; F31.9 Bipolar disorder, unspecified; E05.00 Thyrotoxicosis with diffuse goiter without thyrotoxic crisis or storm; E05.90 Thyrotoxicosis, unspecified without thyrotoxic crisis or storm; I10 Essential (primary) hypertension
CPT/HCPCS: 36415; 80053; 80305; 81003; 85027; 86780

== ENCOUNTER 2024-03-20 01:38 | Inpatient (IN) | payer BC ==
[2024-03-20 02:00] VITALS: BMI 27.7
[2024-03-20] MEDS ORDERED: POLYETHYLENE GLYCOL (HEALTHYLAX) 3350 17 GM PACKET PO PRN (02:33)
[2024-03-20] MEDS ORDERED: ONDANSETRON *ODT* 4 MG TABLET SL PRN (02:33)
[2024-03-20] MEDS ORDERED: MAGNESIUM HYDROX 2400MG/30ML ORAL SUSPENSION 30 ML CUP PO PRN (02:33)
[2024-03-20] MEDS ORDERED: ACETAMINOPHEN 325 MG TABLET (FP) PO PRN (02:33)
[2024-03-20] MEDS ORDERED: BENZOCAINE/MENTHOL (CHLORASEPTIC ) LOZENGE MM PRN (02:33)
[2024-03-20] MEDS ORDERED: BISMUTH SUBSALICYLATE 524 MG/30 ML PO PRN (02:33)
[2024-03-20] MEDS ORDERED: NALOXONE HCL 0.4 MG/ML VIAL IM PRN (02:33)
[2024-03-20] MEDS ORDERED: IBUPROFEN 400 MG TABLET (FP) PO PRN (02:33)
[2024-03-20] MEDS ORDERED: guaiFENesin 600 MG TABLET.ER (FP) PO PRN (02:33)
[2024-03-20] MEDS ORDERED: LOPERAMIDE HCL 2 MG CAPSULE PO PRN (02:33)
[2024-03-20] MEDS ORDERED: DICYCLOMINE HCL 10 MG CAPSULE PO PRN (02:33)
[2024-03-20] MEDS ORDERED: NICOTINE POLACRILEX 2 MG LOZENGE BC PRN (02:33)
[2024-03-20] MEDS ORDERED: BENZONATATE 200 MG CAPSULE PO PRN (02:33)
[2024-03-20] MEDS ORDERED: MAG HYDROX/AL HYDROX/SIMETH 30 ML UNIT-DOSE CUP PO PRN (02:33)
[2024-03-20] MEDS ORDERED: NALOXONE (NARCAN) HCL 4 MG/0.1 ML SPRAY NS PRN (02:33)
[2024-03-20] MEDS ORDERED: chlordiazePOXIDE HCL 25 MG CAPSULE PO PRN (09:58)
[2024-03-20] MEDS: chlordiazePOXIDE HCL 25 MG CAPSULE PO SCH (10:12)
[2024-03-20] MEDS: PRENATAL VITAMINS W/ FOLIC ACID TABLET (FP) PO SCH (10:12)
[2024-03-20] MEDS: NICOTINE 14 MG/24 HOURS TOPICAL PATCH TD SCH (10:13)
[2024-03-20] MEDS: ATENOLOL 50 MG TABLET (FP) PO SCH (10:44)
[2024-03-20] MEDS: METHIMAZOLE 10 MG TABLET PO SCH (10:45)
[2024-03-20] MEDS ORDERED: METHIMAZOLE 10 MG TABLET PO SCH (15:30)
[2024-03-20] MEDS: risperiDONE 1 MG TABLET PO SCH (22:10)
[2024-03-20] MEDS: THIAMINE 100 MG TABLET PO SCH (22:10)
[2024-03-20] MEDS: MELATONIN 5 MG TABLETS PO SCH (22:10)
[2024-03-21] MEDS: METHIMAZOLE 10 MG TABLET PO SCH (10:27)
[2024-03-21 11:52] LABS: HEMATOCRIT 45.5 % (35.4-49); HEMOGLOBIN 15.3 GM/dL (11.7-16.9); MCH 29.7 pg (25.7-33.7); MCHC 33.5 g/dl (32.0-35.9); MEAN CELL VOLUME 88.7 fl (80-96); MEAN PLT VOLUME 9.3 fl (7.5-11.1); PLATELET COUNT 169 10^3/uL (134-434); RBC 5.13 M/mm3 (4.00-5.60); RDW 15.5 % (11.9-15.9); WHITE BLOOD COUNT 6.8 K/mm3 (4.0-10.0)
[2024-03-21 11:54] LABS: POTASSIUM 4.4 mmol/L (3.5-5.1)
[2024-03-21 12:02] LABS: ALBUMIN 3.7 g/dl (3.4-5.0); BLOOD UREA NITROGEN 15.5 mg/dL (7-18); CALCIUM 8.8 mg/dL (8.5-10.1)
[2024-03-21 12:05] LABS: CREATININE 0.8 mg/dL (0.55-1.3)
[2024-03-21 12:07] LABS: BILIRUBIN,TOTAL 0.6 mg/dL (0.2-1); TOT PROT 7.8 g/dl (6.4-8.2)
[2024-03-22] MEDS: chlordiazePOXIDE HCL 25 MG CAPSULE PO SCH (05:42)
[2024-03-22] MEDS: METHIMAZOLE 10 MG TABLET PO SCH (10:09)
[2024-03-22] MEDS: hydrOXYzine PAMOATE 25 MG CAPSULE (FP) PO PRN (22:18)
[2024-03-22] MEDS: IBUPROFEN 600 MG TABLET (FP) PO PRN (23:24)
[2024-03-23] MEDS ORDERED: chlordiazePOXIDE HCL 10 MG CAPSULE PO PRN
[2024-03-23] MEDS: chlordiazePOXIDE HCL 10 MG CAPSULE PO SCH (05:23)
[2024-03-23 12:37] VITALS: PULSE 84
[2024-03-23 16:34] VITALS: BP 139/83; RESP 18; TEMP 98.2
[2024-03-24] MEDS ORDERED: chlordiazePOXIDE HCL 10 MG CAPSULE PO SCH (05:00)
[2024-03-25] MEDS ORDERED: chlordiazePOXIDE HCL 10 MG CAPSULE PO ONE (05:00)
== END 2024-03-23 19:00 | disposition home or self-care (01) | DRG 773 ==
LOC: YASAS 01:38 → Y3N 02:54
PROVIDERS: ADMIT Allergy & Immunology; ATTEND Allergy & Immunology
PROC: HZ2ZZZZ Detoxification Services for Substance Abuse Treatment (ICD-10-PCS; principal; 2024-03-20)
DX: F10.230 Alcohol dependence with withdrawal, uncomplicated (principal); F11.20 Opioid dependence, uncomplicated; F14.20 Cocaine dependence, uncomplicated; F13.20 Sedative, hypnotic or anxiolytic dependence, uncomplicated; F16.20 Hallucinogen dependence, uncomplicated; F17.210 Nicotine dependence, cigarettes, uncomplicated; F25.9 Schizoaffective disorder, unspecified; E05.00 Thyrotoxicosis with diffuse goiter without thyrotoxic crisis or storm; I10 Essential (primary) hypertension; Z59.01 Sheltered homelessness
CPT/HCPCS: 36415; 80053; 80305; 80307; 85027; 86780; 93005; 93010

== ENCOUNTER 2024-05-01 14:04 | Inpatient (IN) | payer BC ==
[2024-05-01 15:44] VITALS: BMI 28.7
[2024-05-01] MEDS ORDERED: MAG HYDROX/AL HYDROX/SIMETH 30 ML UNIT-DOSE CUP PO PRN (16:01)
[2024-05-01] MEDS ORDERED: POLYETHYLENE GLYCOL (HEALTHYLAX) 3350 17 GM PACKET PO PRN (16:01)
[2024-05-01] MEDS ORDERED: MAGNESIUM HYDROX 2400MG/30ML ORAL SUSPENSION 30 ML CUP PO PRN (16:01)
[2024-05-01] MEDS ORDERED: IBUPROFEN 400 MG TABLET (FP) PO PRN (16:01)
[2024-05-01] MEDS ORDERED: ACETAMINOPHEN 325 MG TABLET (FP) PO PRN (16:01)
[2024-05-01] MEDS ORDERED: BENZOCAINE/MENTHOL (CHLORASEPTIC ) LOZENGE MM PRN (16:01)
[2024-05-01] MEDS ORDERED: guaiFENesin 600 MG TABLET.ER (FP) PO PRN (16:01)
[2024-05-01] MEDS ORDERED: BENZONATATE 200 MG CAPSULE PO PRN (16:01)
[2024-05-01] MEDS ORDERED: LOPERAMIDE HCL 2 MG CAPSULE PO PRN (16:01)
[2024-05-01] MEDS: hydrOXYzine PAMOATE 25 MG CAPSULE (FP) PO PRN (22:25)
[2024-05-01] MEDS: THIAMINE 100 MG TABLET PO SCH (22:25)
[2024-05-01] MEDS: MELATONIN 5 MG TABLETS PO SCH (22:25)
[2024-05-02 08:49] LABS: HEMATOCRIT 42.5 % (35.4-49); HEMOGLOBIN 14.4 GM/dL (11.7-16.9); MCH 30.4 pg (25.7-33.7); MEAN CELL VOLUME 89.5 fl (80-96); MEAN PLT VOLUME 9.4 fl (7.5-11.1); PLATELET COUNT 184 10^3/uL (134-434); RBC 4.75 M/mm3 (4.00-5.60); RDW 14.4 % (11.9-15.9); WHITE BLOOD COUNT 6.2 K/mm3 (4.0-10.0)
[2024-05-02 08:51] LABS: CHLORIDE 108 mmol/L (98-107); POTASSIUM 4.3 mmol/L (3.5-5.1); SODIUM 140 mmol/L (136-145)
[2024-05-02 08:57] LABS: ALBUMIN 3.5 g/dl (3.4-5.0); CALCIUM 8.9 mg/dL (8.5-10.1); GLUCOSE,RANDOM 87 mg/dL (74-106)
[2024-05-02 08:58] LABS: ANION GAP 5 mmol/L (4-13); CO2 27 mmol/L (21-32)
[2024-05-02 09:00] LABS: CREATININE 0.9 mg/dL (0.55-1.3); SGOT/AST 24 U/L (15-37); SGPT/ALT 34 U/L (13-61)
[2024-05-02 09:01] LABS: BILIRUBIN,TOTAL 0.7 mg/dL (0.2-1)
[2024-05-02 09:02] LABS: TOT PROT 7.1 g/dl (6.4-8.2)
[2024-05-02 09:03] LABS: ALK PHOS 90 U/L (45-117)
[2024-05-02] MEDS: PRENATAL VITAMINS W/ FOLIC ACID TABLET (FP) PO SCH (10:32)
[2024-05-02] MEDS: risperiDONE 0.5 MG TABLET PO SCH (10:32)
[2024-05-02] MEDS: METHIMAZOLE 10 MG TABLET PO SCH (14:02)
[2024-05-03] MEDS: ATENOLOL 50 MG TABLET (FP) PO SCH (10:02)
[2024-05-04] MEDS: IBUPROFEN 600 MG TABLET (FP) PO PRN (07:01)
[2024-05-08 06:40] VITALS: RESP 20; TEMP 97.1
[2024-05-08 10:16] VITALS: BP 105/55; PULSE 72
[2024-05-08 14:31] LABS: HIV INTERPRETATION NEGATIVE (NEGATIVE)
== END 2024-05-08 15:43 | disposition home or self-care (01) | DRG 772 ==
LOC: YASAS 14:04 → Y3NR 16:44 → Y3E 05-02 12:26
PROVIDERS: ADMIT Allergy & Immunology; ATTEND Psychiatry & Neurology Pain Medicine
PROC: HZ42ZZZ Group Counseling for Substance Abuse Treatment, Cognitive-Behavioral (ICD-10-PCS; principal; 2024-05-01)
DX: F10.20 Alcohol dependence, uncomplicated (principal); F13.20 Sedative, hypnotic or anxiolytic dependence, uncomplicated; F16.20 Hallucinogen dependence, uncomplicated; F12.20 Cannabis dependence, uncomplicated; F17.210 Nicotine dependence, cigarettes, uncomplicated; F25.0 Schizoaffective disorder, bipolar type; F31.9 Bipolar disorder, unspecified; F19.982 Other psychoactive substance use, unspecified with psychoactive substance-induced sleep disorder; I10 Essential (primary) hypertension; E05.90 Thyrotoxicosis, unspecified without thyrotoxic crisis or storm; R44.0 Auditory hallucinations; Z91.198 Patient's noncompliance with other medical treatment and regimen for other reason; Z56.0 Unemployment, unspecified; Z59.01 Sheltered homelessness
CPT/HCPCS: 36415; 80053; 80305; 80307; 85027; 86780; 86803; 87389; 87811

== ENCOUNTER 2024-06-06 21:34 | Inpatient (IN) | payer BC, OTHER ==
[2024-06-06 21:52] VITALS: BMI 30.2
[2024-06-06] MEDS ORDERED: DICYCLOMINE HCL 10 MG CAPSULE PO PRN (22:11)
[2024-06-06] MEDS ORDERED: BISMUTH SUBSALICYLATE 524 MG/30 ML PO PRN (22:11)
[2024-06-06] MEDS ORDERED: ACETAMINOPHEN 325 MG TABLET (FP) PO PRN (22:11)
[2024-06-06] MEDS ORDERED: IBUPROFEN 600 MG TABLET (FP) PO PRN (22:11)
[2024-06-06] MEDS ORDERED: LOPERAMIDE HCL 2 MG CAPSULE PO PRN (22:11)
[2024-06-06] MEDS ORDERED: BENZONATATE 200 MG CAPSULE PO PRN (22:11)
[2024-06-06] MEDS ORDERED: guaiFENesin 600 MG TABLET.ER (FP) PO PRN (22:11)
[2024-06-06] MEDS ORDERED: hydrOXYzine PAMOATE 25 MG CAPSULE (FP) PO PRN (22:11)
[2024-06-06] MEDS ORDERED: IBUPROFEN 400 MG TABLET (FP) PO PRN (22:11)
[2024-06-06] MEDS ORDERED: POLYETHYLENE GLYCOL (HEALTHYLAX) 3350 17 GM PACKET PO PRN (22:11)
[2024-06-06] MEDS ORDERED: MAGNESIUM HYDROX 2400MG/30ML ORAL SUSPENSION 30 ML CUP PO PRN (22:11)
[2024-06-06] MEDS ORDERED: METHOCARBAMOL 500 MG TABLET PO PRN (22:11)
[2024-06-06] MEDS ORDERED: BENZOCAINE/MENTHOL (CHLORASEPTIC ) LOZENGE MM PRN (22:11)
[2024-06-06] MEDS ORDERED: NALOXONE HCL 0.4 MG/ML VIAL IM PRN (22:11)
[2024-06-06] MEDS ORDERED: NICOTINE POLACRILEX 2 MG LOZENGE BC PRN (22:11)
[2024-06-06] MEDS ORDERED: MAG HYDROX/AL HYDROX/SIMETH 30 ML UNIT-DOSE CUP PO PRN (22:11)
[2024-06-06] MEDS ORDERED: NALOXONE (NARCAN) HCL 4 MG/0.1 ML SPRAY NS PRN (22:11)
[2024-06-06] MEDS ORDERED: ONDANSETRON *ODT* 4 MG TABLET SL PRN (22:11)
[2024-06-07] MEDS: METHIMAZOLE 10 MG TABLET PO SCH (08:00)
[2024-06-07] MEDS ORDERED: NICOTINE 14 MG/24 HOURS TOPICAL PATCH TD ONE (09:30)
[2024-06-07] MEDS ORDERED: PRENATAL VITAMINS W/ FOLIC ACID TABLET (FP) PO ONE (09:32)
[2024-06-07] MEDS: PRENATAL VITAMINS W/ FOLIC ACID TABLET (FP) PO SCH (09:52)
[2024-06-07] MEDS: ATENOLOL 50 MG TABLET (FP) PO SCH (09:52)
[2024-06-07] MEDS: NICOTINE 14 MG/24 HOURS TOPICAL PATCH TD SCH (09:52)
[2024-06-07 11:22] LABS: HEMATOCRIT 39.8 % (35.4-49); HEMOGLOBIN 13.3 GM/dL (11.7-16.9); MCH 30.3 pg (25.7-33.7); MCHC 33.5 g/dl (32.0-35.9); MEAN CELL VOLUME 90.5 fl (80-96); MEAN PLT VOLUME 9.3 fl (7.5-11.1); PLATELET COUNT 170 10^3/uL (134-434); RDW 14.3 % (11.9-15.9); WHITE BLOOD COUNT 6.9 K/mm3 (4.0-10.0)
[2024-06-07 11:54] LABS: CHLORIDE 109 mmol/L (98-107); POTASSIUM 4.4 mmol/L (3.5-5.1); SODIUM 140 mmol/L (136-145)
[2024-06-07 12:28] LABS: ALBUMIN 3.3 g/dl (3.4-5.0); ANION GAP 7 mmol/L (4-13); BLOOD UREA NITROGEN 19.5 mg/dL (7-18); CALCIUM 8.5 mg/dL (8.5-10.1); CO2 25 mmol/L (21-32); GLUCOSE,RANDOM 104 mg/dL (74-106)
[2024-06-07 12:31] LABS: CREATININE 0.7 mg/dL (0.55-1.3); SGOT/AST 28 U/L (15-37); SGPT/ALT 45 U/L (13-61)
[2024-06-07 12:33] LABS: BILIRUBIN,TOTAL 0.5 mg/dL (0.2-1)
[2024-06-07 12:34] LABS: ALK PHOS 89 U/L (45-117)
[2024-06-07 21:24] VITALS: BP 143/87; PULSE 90; RESP 16; TEMP 97.6
[2024-06-07] MEDS: MELATONIN 5 MG TABLETS PO SCH (22:50)
[2024-06-07] MEDS: THIAMINE 100 MG TABLET PO SCH (22:51)
== END 2024-06-08 00:49 | disposition short-term general hospital (02) | DRG 775 ==
LOC: YASAS 21:34 → Y3N 06-07 11:51 → Y6N 06-07 20:22
PROVIDERS: ADMIT Allergy & Immunology; ATTEND Surgery
PROC: HZ2ZZZZ Detoxification Services for Substance Abuse Treatment (ICD-10-PCS; principal; 2024-06-07)
DX: F10.230 Alcohol dependence with withdrawal, uncomplicated (principal); F13.20 Sedative, hypnotic or anxiolytic dependence, uncomplicated; F16.20 Hallucinogen dependence, uncomplicated; F12.20 Cannabis dependence, uncomplicated; F17.210 Nicotine dependence, cigarettes, uncomplicated; F39 Unspecified mood [affective] disorder; E03.9 Hypothyroidism, unspecified; Z59.01 Sheltered homelessness
CPT/HCPCS: 36415; 80053; 80305; 80307; 85027; 86780

== ENCOUNTER 2024-08-04 17:01 | Inpatient (IN) | payer OTHER ==
[2024-08-04 17:58] VITALS: BMI 28.0
[2024-08-04] MEDS ORDERED: NALOXONE (NARCAN) HCL 4 MG/0.1 ML SPRAY NS PRN (19:28)
[2024-08-04] MEDS ORDERED: POLYETHYLENE GLYCOL (HEALTHYLAX) 3350 17 GM PACKET PO PRN (19:28)
[2024-08-04] MEDS ORDERED: ONDANSETRON *ODT* 4 MG TABLET SL PRN (19:28)
[2024-08-04] MEDS ORDERED: LOPERAMIDE HCL 2 MG CAPSULE PO PRN (19:28)
[2024-08-04] MEDS ORDERED: MAGNESIUM HYDROX 2400MG/30ML ORAL SUSPENSION 30 ML CUP PO PRN (19:28)
[2024-08-04] MEDS ORDERED: BENZOCAINE/MENTHOL (CHLORASEPTIC ) LOZENGE MM PRN (19:28)
[2024-08-04] MEDS ORDERED: IBUPROFEN 400 MG TABLET (FP) PO PRN (19:28)
[2024-08-04] MEDS ORDERED: ACETAMINOPHEN 325 MG TABLET (FP) PO PRN (19:28)
[2024-08-04] MEDS ORDERED: DICYCLOMINE HCL 10 MG CAPSULE PO PRN (19:28)
[2024-08-04] MEDS ORDERED: BENZONATATE 200 MG CAPSULE PO PRN (19:28)
[2024-08-04] MEDS ORDERED: MAG HYDROX/AL HYDROX/SIMETH 30 ML UNIT-DOSE CUP PO PRN (19:28)
[2024-08-04] MEDS ORDERED: BISMUTH SUBSALICYLATE 524 MG/30 ML PO PRN (19:28)
[2024-08-04] MEDS ORDERED: guaiFENesin 600 MG TABLET.ER (FP) PO PRN (19:28)
[2024-08-04] MEDS ORDERED: IBUPROFEN 600 MG TABLET (FP) PO PRN (19:28)
[2024-08-04] MEDS: MELATONIN 5 MG TABLETS PO SCH (22:18)
[2024-08-04] MEDS: METHIMAZOLE 10 MG TABLET PO SCH (22:18)
[2024-08-04] MEDS: METHOCARBAMOL 500 MG TABLET PO PRN (22:18)
[2024-08-04] MEDS: hydrOXYzine PAMOATE 25 MG CAPSULE (FP) PO PRN (22:18)
[2024-08-04] MEDS: THIAMINE 100 MG TABLET PO SCH (22:18)
[2024-08-05] MEDS ORDERED: chlordiazePOXIDE HCL 25 MG CAPSULE PO PRN (10:03)
[2024-08-05 10:26] LABS: CHLORIDE 109 mmol/L (98-107); POTASSIUM 3.7 mmol/L (3.5-5.1); SODIUM 140 mmol/L (136-145)
[2024-08-05 10:29] LABS: ALBUMIN 2.9 g/dl (3.4-5.0); ANION GAP 5 mmol/L (4-13); BLOOD UREA NITROGEN 16.7 mg/dL (7-18); CO2 26 mmol/L (21-32); GLUCOSE,RANDOM 136 mg/dL (74-106)
[2024-08-05 10:32] LABS: CREATININE 0.8 mg/dL (0.55-1.3); HEMATOCRIT 37.7 % (35.4-49); HEMOGLOBIN 12.5 GM/dL (11.7-16.9); MCH 29.5 pg (25.7-33.7); MCHC 33.1 g/dl (32.0-35.9); MEAN PLT VOLUME 9.1 fl (7.5-11.1); PLATELET COUNT 149 10^3/uL (134-434); RBC 4.24 M/mm3 (4.00-5.60); RDW 12.8 % (11.9-15.9); SGOT/AST 13 U/L (15-37); SGPT/ALT 30 U/L (13-61); WHITE BLOOD COUNT 3.9 K/mm3 (4.0-10.0)
[2024-08-05 10:34] LABS: BILIRUBIN,TOTAL 0.7 mg/dL (0.2-1)
[2024-08-05 10:35] LABS: ALK PHOS 76 U/L (45-117)
[2024-08-05] MEDS: PRENATAL VITAMINS W/ FOLIC ACID TABLET (FP) PO SCH (10:40)
[2024-08-05] MEDS: ATENOLOL 50 MG TABLET (FP) PO SCH (10:40)
[2024-08-05] MEDS: chlordiazePOXIDE HCL 25 MG CAPSULE PO SCH (10:40)
[2024-08-05] MEDS: risperiDONE 1 MG TABLET PO SCH (10:40)
[2024-08-05] MEDS: risperiDONE 0.5 MG TABLET PO SCH (10:44)
[2024-08-07] MEDS: chlordiazePOXIDE HCL 25 MG CAPSULE PO SCH (05:16)
[2024-08-08] MEDS ORDERED: chlordiazePOXIDE HCL 10 MG CAPSULE PO PRN
[2024-08-08] MEDS: chlordiazePOXIDE HCL 10 MG CAPSULE PO SCH (06:00)
[2024-08-09] MEDS: chlordiazePOXIDE HCL 10 MG CAPSULE PO SCH (05:50)
[2024-08-09] MEDS: NALOXONE (NYS OPIOID OVERDOSE PROGRAM) 4 MG/0.1 ML SPRAY NS SCH (11:51)
[2024-08-10] MEDS: chlordiazePOXIDE HCL 10 MG CAPSULE PO ONE (05:43)
[2024-08-10 10:08] VITALS: BP 121/70; PULSE 100; RESP 18; TEMP 97.3
== END 2024-08-10 11:02 | disposition home or self-care (01) | DRG 775 ==
LOC: YASAS 17:01 → Y3N 19:28
PROVIDERS: ADMIT Surgery; ATTEND Surgery
PROC: HZ2ZZZZ Detoxification Services for Substance Abuse Treatment (ICD-10-PCS; principal; 2024-08-04)
DX: F10.230 Alcohol dependence with withdrawal, uncomplicated (principal); F13.20 Sedative, hypnotic or anxiolytic dependence, uncomplicated; F16.20 Hallucinogen dependence, uncomplicated; F12.20 Cannabis dependence, uncomplicated; F17.210 Nicotine dependence, cigarettes, uncomplicated; F31.9 Bipolar disorder, unspecified; E05.90 Thyrotoxicosis, unspecified without thyrotoxic crisis or storm; I10 Essential (primary) hypertension; Z59.00 Homelessness unspecified; Z56.0 Unemployment, unspecified
CPT/HCPCS: 36415; 80053; 80305; 80307; 85027; 86780; 93005; 93010

== ENCOUNTER 2024-08-27 10:56 | Inpatient (IN) | payer OTHER ==
[2024-08-27 11:32] VITALS: BMI 28.7
[2024-08-27] MEDS ORDERED: MAG HYDROX/AL HYDROX/SIMETH 30 ML UNIT-DOSE CUP PO PRN (11:37)
[2024-08-27] MEDS ORDERED: BISMUTH SUBSALICYLATE 524 MG/30 ML PO PRN (11:37)
[2024-08-27] MEDS ORDERED: IBUPROFEN 600 MG TABLET (FP) PO PRN (11:37)
[2024-08-27] MEDS ORDERED: POLYETHYLENE GLYCOL (HEALTHYLAX) 3350 17 GM PACKET PO PRN (11:37)
[2024-08-27] MEDS ORDERED: MAGNESIUM HYDROX 2400MG/30ML ORAL SUSPENSION 30 ML CUP PO PRN (11:37)
[2024-08-27] MEDS ORDERED: BENZOCAINE/MENTHOL (CHLORASEPTIC ) LOZENGE MM PRN (11:37)
[2024-08-27] MEDS ORDERED: chlordiazePOXIDE HCL 25 MG CAPSULE PO PRN (11:37)
[2024-08-27] MEDS ORDERED: LOPERAMIDE HCL 2 MG CAPSULE PO PRN (11:37)
[2024-08-27] MEDS ORDERED: guaiFENesin 600 MG TABLET.ER (FP) PO PRN (11:37)
[2024-08-27] MEDS ORDERED: DICYCLOMINE HCL 10 MG CAPSULE PO PRN (11:37)
[2024-08-27] MEDS ORDERED: IBUPROFEN 400 MG TABLET (FP) PO PRN (11:37)
[2024-08-27] MEDS ORDERED: ONDANSETRON *ODT* 4 MG TABLET SL PRN (11:37)
[2024-08-27] MEDS ORDERED: ACETAMINOPHEN 325 MG TABLET (FP) PO PRN (11:37)
[2024-08-27] MEDS ORDERED: NICOTINE POLACRILEX 2 MG GUM BUC PRN (11:37)
[2024-08-27] MEDS ORDERED: NALOXONE (NARCAN) HCL 4 MG/0.1 ML SPRAY NS PRN (11:37)
[2024-08-27] MEDS ORDERED: BENZONATATE 200 MG CAPSULE PO PRN (11:37)
[2024-08-27] MEDS ORDERED: hydrOXYzine PAMOATE 25 MG CAPSULE (FP) PO PRN (11:37)
[2024-08-27] MEDS: chlordiazePOXIDE HCL 25 MG CAPSULE PO SCH (17:30)
[2024-08-27] MEDS: THIAMINE 100 MG TABLET PO SCH (22:17)
[2024-08-27] MEDS: MELATONIN 5 MG TABLETS PO SCH (22:17)
[2024-08-27] MEDS: METHOCARBAMOL 500 MG TABLET PO PRN (22:17)
[2024-08-28] MEDS: PRENATAL VITAMINS W/ FOLIC ACID TABLET (FP) PO SCH (10:13)
[2024-08-28] MEDS: ATENOLOL 50 MG TABLET (FP) PO SCH (10:16)
[2024-08-28] MEDS: METHIMAZOLE 10 MG TABLET PO SCH (10:17)
[2024-08-28 15:47] LABS: CHLORIDE 108 mmol/L (98-107); POTASSIUM 4.1 mmol/L (3.5-5.1); SODIUM 140 mmol/L (136-145)
[2024-08-28 15:56] LABS: HEMATOCRIT 41.9 % (35.4-49); HEMOGLOBIN 13.5 GM/dL (11.7-16.9); MCH 28.4 pg (25.7-33.7); MCHC 32.3 g/dl (32.0-35.9); MEAN CELL VOLUME 87.9 fl (80-96); PLATELET COUNT 149 10^3/uL (134-434); RBC 4.76 M/mm3 (4.00-5.60); RDW 14.3 % (11.9-15.9)
[2024-08-28 16:04] LABS: ALBUMIN 3.1 g/dl (3.4-5.0); CALCIUM 9.3 mg/dL (8.5-10.1)
[2024-08-28 16:05] LABS: ANION GAP 6 mmol/L (4-13); BLOOD UREA NITROGEN 10.8 mg/dL (7-18); CO2 26 mmol/L (21-32); GLUCOSE,RANDOM 117 mg/dL (74-106)
[2024-08-28 16:08] LABS: CREATININE 0.7 mg/dL (0.55-1.3); SGOT/AST 16 U/L (15-37)
[2024-08-28 16:10] LABS: ALK PHOS 79 U/L (45-117); BILIRUBIN,TOTAL 0.4 mg/dL (0.2-1); TOT PROT 6.5 g/dl (6.4-8.2)
[2024-08-28 16:13] LABS: SGPT/ALT 27 U/L (13-61)
[2024-08-28] MEDS: risperiDONE 1 MG TABLET PO SCH (22:47)
[2024-08-29] MEDS: chlordiazePOXIDE HCL 25 MG CAPSULE PO SCH (05:51)
[2024-08-29 18:11] VITALS: RESP 17
[2024-08-29] MEDS: ACAMPROSATE CALCIUM 333 MG TABLET.DR PO SCH (22:23)
[2024-08-30] MEDS ORDERED: chlordiazePOXIDE HCL 10 MG CAPSULE PO PRN
[2024-08-30] MEDS: chlordiazePOXIDE HCL 10 MG CAPSULE PO SCH (05:52)
[2024-08-30 06:34] VITALS: BP 113/60; PULSE 84; TEMP 97.7
[2024-08-30] MEDS: NALOXONE (NYS OPIOID OVERDOSE PROGRAM) 4 MG/0.1 ML SPRAY NS SCH (09:53)
[2024-08-31] MEDS ORDERED: chlordiazePOXIDE HCL 10 MG CAPSULE PO SCH (05:00)
[2024-09-01] MEDS ORDERED: chlordiazePOXIDE HCL 10 MG CAPSULE PO ONE (05:00)
== END 2024-08-30 11:19 | disposition left against medical advice (07) | DRG 770 ==
LOC: YASAS 10:56 → Y6N 11:54
PROVIDERS: ADMIT Allergy & Immunology; ATTEND Surgery
PROC: HZ2ZZZZ Detoxification Services for Substance Abuse Treatment (ICD-10-PCS; principal; 2024-08-27)
DX: F13.230 Sedative, hypnotic or anxiolytic dependence with withdrawal, uncomplicated (principal); F16.20 Hallucinogen dependence, uncomplicated; F12.20 Cannabis dependence, uncomplicated; F17.213 Nicotine dependence, cigarettes, with withdrawal; F20.9 Schizophrenia, unspecified; F19.982 Other psychoactive substance use, unspecified with psychoactive substance-induced sleep disorder; I10 Essential (primary) hypertension; E05.90 Thyrotoxicosis, unspecified without thyrotoxic crisis or storm; D72.819 Decreased white blood cell count, unspecified; Z56.0 Unemployment, unspecified; Z59.00 Homelessness unspecified
CPT/HCPCS: 36415; 80053; 80305; 80307; 85027; 86780

== ENCOUNTER 2024-09-14 15:41 | Inpatient (IN) | payer OTHER ==
[2024-09-14 17:26] VITALS: BMI 27.4
[2024-09-14] MEDS ORDERED: BENZONATATE 200 MG CAPSULE PO PRN (20:49)
[2024-09-14] MEDS ORDERED: IBUPROFEN 400 MG TABLET (FP) PO PRN (20:49)
[2024-09-14] MEDS ORDERED: POLYETHYLENE GLYCOL (HEALTHYLAX) 3350 17 GM PACKET PO PRN (20:49)
[2024-09-14] MEDS ORDERED: IBUPROFEN 600 MG TABLET (FP) PO PRN (20:49)
[2024-09-14] MEDS ORDERED: BENZOCAINE/MENTHOL (CHLORASEPTIC ) LOZENGE MM PRN (20:49)
[2024-09-14] MEDS ORDERED: guaiFENesin 600 MG TABLET.ER (FP) PO PRN (20:49)
[2024-09-14] MEDS ORDERED: LOPERAMIDE HCL 2 MG CAPSULE PO PRN (20:49)
[2024-09-14] MEDS ORDERED: P-EPHED 60MG/TRIPROLIDI 2.5MG TABLET PO PRN (20:49)
[2024-09-14] MEDS ORDERED: MAG HYDROX/AL HYDROX/SIMETH 30 ML UNIT-DOSE CUP PO PRN (20:49)
[2024-09-14] MEDS ORDERED: NICOTINE POLACRILEX 2 MG GUM BUC PRN (20:49)
[2024-09-14] MEDS ORDERED: MAGNESIUM HYDROX 2400MG/30ML ORAL SUSPENSION 30 ML CUP PO PRN (20:49)
[2024-09-14] MEDS ORDERED: ACETAMINOPHEN 325 MG TABLET (FP) PO PRN (20:49)
[2024-09-14] MEDS: MELATONIN 5 MG TABLETS PO SCH (22:19)
[2024-09-14] MEDS: THIAMINE 100 MG TABLET PO SCH (22:19)
[2024-09-14] MEDS: METHIMAZOLE 10 MG TABLET PO SCH (22:47)
[2024-09-15 05:57] VITALS: RESP 16
[2024-09-15] MEDS: ATENOLOL 50 MG TABLET (FP) PO SCH (10:41)
[2024-09-15] MEDS: PRENATAL VITAMINS W/ FOLIC ACID TABLET (FP) PO SCH (10:42)
[2024-09-15] MEDS: hydrOXYzine PAMOATE 25 MG CAPSULE (FP) PO PRN (21:35)
[2024-09-15] MEDS: risperiDONE 1 MG TABLET PO SCH (21:35)
[2024-09-15 22:33] LABS: PH,URINE 8.5 (5.0-8.0); URINE APPEARANCE CLEAR; URINE BILIRUBIN NEGATIVE (NEGATIVE); URINE COLOR YELLOW; URINE GLUCOSE (UA) NEGATIVE (NEGATIVE); URINE KETONE NEGATIVE (NEGATIVE); URINE LEUK ESTERASE NEGATIVE (NEGATIVE); URINE NITRITE NEGATIVE (NEGATIVE); URINE PROTEIN NEGATIVE (NEGATIVE); URINE UROBILINOGEN 0.2 mg/dL (0.2-1.0)
[2024-09-16 09:07] VITALS: BP 129/82; PULSE 90; TEMP 98
[2024-09-16] MEDS ORDERED: NALOXONE (NYS OPIOID OVERDOSE PROGRAM) 4 MG/0.1 ML SPRAY NS SCH (19:00)
== END 2024-09-16 16:10 | disposition left against medical advice (07) | DRG 772 ==
LOC: YASAS 15:41 → Y3NR 21:02
PROVIDERS: ADMIT Allergy & Immunology; ATTEND Psychiatry & Neurology Pain Medicine
PROC: HZ42ZZZ Group Counseling for Substance Abuse Treatment, Cognitive-Behavioral (ICD-10-PCS; principal; 2024-09-14)
DX: F14.10 Cocaine abuse, uncomplicated (principal); F14.20 Cocaine dependence, uncomplicated; F16.20 Hallucinogen dependence, uncomplicated; F17.210 Nicotine dependence, cigarettes, uncomplicated; F25.9 Schizoaffective disorder, unspecified; E05.90 Thyrotoxicosis, unspecified without thyrotoxic crisis or storm; I11.0 Hypertensive heart disease with heart failure; F91.8 Other conduct disorders; Z91.199 Patient's noncompliance with other medical treatment and regimen due to unspecified reason; Z59.01 Sheltered homelessness
CPT/HCPCS: 36415; 80305; 80307; 81003; 87811